=== PATIENT | female | born 1995 | race African-American/Black ===

== ENCOUNTER 2021-10-04 12:23 | Emergency (ER) | payer OTHER ==
[~2021-10-04 12:23] MED LIST: KEFLEX500 MG PO
[2021-10-04 13:57] LABS: CORONAVIRUS 2019 SARS-COV-2 NEGATIVE (NEGATIVE); INFLUENZA A NAA NEGATIVE (NEGATIVE)
== END 2021-10-04 16:26 | disposition left against medical advice (07) ==
LOC: FER 12:23
PROVIDERS: Emergency Medicine
DX: Z20.822 Contact with and (suspected) exposure to COVID-19 (principal); Z53.8 Procedure and treatment not carried out for other reasons
CPT/HCPCS: 99282; U0002